=== PATIENT | female | born 1980 | race Two or more races ===

== ENCOUNTER 2025-08-13 18:51 | Emergency (ER) | payer BC ==
[~2025-08-13] VITALS: Ht 170.2 cm; Wt 83.5 kg
[2025-08-13] MEDS ORDERED: DIPHENHYDRAMINE HCL 50 MG/ML VIAL 1ML IV ONE (19:45)
[2025-08-13] MEDS ORDERED: METHYLPREDNISOLONE SOD SUCC 125 MG VIAL IV ONE (19:45)
[2025-08-13] MEDS ORDERED: FAMOTIDINE/PF 20 MG/2 ML VIAL IV ONE (19:45)
[2025-08-13] MEDS ORDERED: METHYLPREDNISOLONE SOD SUCC 125 MG VIAL ONE (19:55)
[2025-08-13] MEDS ORDERED: DIPHENHYDRAMINE HCL 50 MG/ML VIAL 1ML ONE (19:55)
[2025-08-13] MEDS ORDERED: FAMOTIDINE/PF 20 MG/2 ML VIAL ONE (19:55)
[2025-08-13 19:59] LABS: BASO % 0.7 % (0.1-1.2); EOS # 0.05 (0.04-0.54); EOS % 1.2 % (0.7-7.0); LYMPH # 1.50 (1.18-3.74); LYMPH % 36.1 % (19.3-53.1); MEAN PLATELET VOLUME 10.20 fl (9.4-12.4); MONO # 0.48 (0.24-0.82); MONO % 11.6 % (4.7-12.5); NEUT # 2.09 (1.56-6.13); NEUT % 50.4 % (34.0-71.1); RED CELL DISTRIBUTION WIDTH 12.3 % (11.6-14.4)
[2025-08-13] MEDS ORDERED: MEDROLPACK PO (21:04)
[2025-08-13] MEDS ORDERED: ZYRTEC10 MG PO (21:04)
[2025-08-13] MEDS ORDERED: PEPCID AC20 MG PO (21:04)
== END 2025-08-13 21:12 ==
LOC: ER 18:52
PROVIDERS: General Practice
DX: T78.40XA Allergy, unspecified, initial encounter (principal); X58.XXXA Exposure to other specified factors, initial encounter